=== PATIENT | male | born 1935 ===

== ENCOUNTER 2018-06-08 13:32 | Outpatient (REF) | payer MEDICARE, BC, SELFPAY ==
[2018-06-08 21:32] LABS: Anion Gap 7.3 mmol/L (3-11); BUN 31 mg/dL (7-18); CO2 30.7 mmol/L (21.0-32.0); CREATININE 1.24 mg/dL (0.70-1.30); Calcium 9.1 mg/dL (8.5-10.1); Chloride 103 mmol/L (98-107); Cholesterol 149 mg/dL (50-200); Estimated GFR 55.81 (mL/min/1.73m2); Glucose 76 mg/dL (70-100); HDL Cholesterol 38 mg/dL (40-60); LDL CHOLESTEROL 86 mg/dL (<100); Sodium 141 mmol/L (136-145); TSH 7.03 uIU/mL (0.358-3.74); Triglyceride 166 mg/dL (30-150)
[2018-06-10 10:29] LABS: PSA, Screening 6.2 ng/ml (0-6.5)
[2018-06-10 17:09] LABS: T4 6.9 ug/dL (4.5-12.5)
== END 2018-06-08 13:52 ==
LOC: NCHCN 13:32
PROVIDERS: Visit Provider Nurse Practitioner Family
DX: I10 Essential (primary) hypertension (principal); I48.0 Paroxysmal atrial fibrillation; R35.1 Nocturia; N40.0 Benign prostatic hyperplasia without lower urinary tract symptoms; Z12.5 Encounter for screening for malignant neoplasm of prostate; Z13.220 Encounter for screening for lipoid disorders; R94.6 Abnormal results of thyroid function studies
CPT/HCPCS: 80048; 80061; 83721; 84153; 84436; 84443

== ENCOUNTER 2020-02-14 18:05 | Outpatient (REF) | payer MEDICARE, BC, SELFPAY ==
[2020-02-14 22:44] LABS: Total Iron Binding Capacity 256 ug/dL (250-450)
[2020-02-14 23:03] LABS: Ferritin 153 ng/mL (26-388); Folate 11.3 ng/mL (8.6-20.0); TSH 6.79 uIU/mL (0.36-3.74); Vitamin B12 440 pg/mL (193-986)
[2020-02-14 23:18] LABS: Iron 65 ug/dL (65-175); Transferrin Sat 25 % (20-55)
== END 2020-02-14 18:25 ==
LOC: NCHCN 18:05
PROVIDERS: Visit Provider Nurse Practitioner Family
DX: D64.9 Anemia, unspecified (principal); I10 Essential (primary) hypertension; I48.0 Paroxysmal atrial fibrillation; F51.09 Other insomnia not due to a substance or known physiological condition; F13.20 Sedative, hypnotic or anxiolytic dependence, uncomplicated; F41.1 Generalized anxiety disorder; M16.9 Osteoarthritis of hip, unspecified
CPT/HCPCS: 82607; 82728; 82746; 83540; 83550; 84443

== ENCOUNTER 2020-02-29 10:32 | Outpatient (REF) | payer MEDICARE, BC, SELFPAY ==
[2020-02-29 21:25] LABS: HCT 40.1 % (40.0-50.0); HGB 13.2 g/dL (13.5-17.5); MCH 30.6 pg (27.0-33.0); MCHC 32.9 % (32.0-36.0); MPV 11.2 fL (8.0-11.0); Platelet Count 291 10^3/uL (130-400); RBC 4.31 10^6/uL (4.36-5.78); RDW 12.3 % (11.8-14.1); RDW-SD 41.7 fL; WBC 6.88 10^3/uL (4.4-10.8)
[2020-02-29 22:11] LABS: Iron 69 ug/dL (65-175); Total Iron Binding Capacity 260 ug/dL (250-450); Transferrin Sat 27 % (20-55)
[2020-02-29 22:27] LABS: Ferritin 152 ng/mL (26-388)
== END 2020-02-29 10:52 ==
LOC: NCHCN 10:32
PROVIDERS: Visit Provider Nurse Practitioner Family
DX: D64.9 Anemia, unspecified (principal)
CPT/HCPCS: 85027; 82728; 83540; 83550

== ENCOUNTER 2020-08-07 15:52 | Outpatient (REF) | payer MEDICARE, BC, SELFPAY ==
[2020-08-07 21:28] LABS: Anion Gap 6.7 mmol/L (3-11); BUN 33 mg/dL (7-18); CO2 32.3 mmol/L (21.0-32.0); CREATININE 1.3 mg/dL (0.70-1.30); Calcium 9.1 mg/dL (8.5-10.1); Calculated LDL 84 mg/dL (<100); Chloride 101 mmol/L (98-107); Cholesterol 154 mg/dL (<200); Estimated GFR 52.59 (mL/min/1.73m2); Glucose 96 mg/dL (74-106); HDL Cholesterol 40 mg/dL (40-60); Potassium 4.5 mmol/L (3.5-5.1); Sodium 140 mmol/L (136-145); Triglyceride 151 mg/dL (<150)
[2020-08-08 17:50] LABS: PSA, Screening 7.2 ng/mL (0.0-6.5)
== END 2020-08-07 15:53 | disposition home or self-care (01) ==
LOC: NCHCN 15:52
PROVIDERS: Visit Provider Nurse Practitioner Family
DX: I10 Essential (primary) hypertension (principal); I48.0 Paroxysmal atrial fibrillation; N40.0 Benign prostatic hyperplasia without lower urinary tract symptoms; Z12.5 Encounter for screening for malignant neoplasm of prostate
CPT/HCPCS: 80048; 80061; 84153